=== PATIENT | male | born 1950 | race African-American/Black ===

== ENCOUNTER 2022-06-03 10:11 | Emergency (ER) | payer OTHER ==
[~2022-06-03] VITALS: Ht 175.3 cm; Wt 68.0 kg
[~2022-06-03 10:11] MED LIST: BENA5TAB; MOTRIN
[2022-06-03 10:25] VITALS: BP 182/77
[2022-06-03 15:33] LABS: CLARITY URINE CLEAR (CLEAR); COLOR URINE YELLOW (YELLOW); KETONES URINE TRACE (NEGATIVE); LEUKOCYTE ESTERASE URINE NEGATIVE (NEGATIVE); NITRITE URINE NEGATIVE (NEGATIVE); OCCULT BLOOD URINE NEGATIVE (NEGATIVE); PH URINE 5.5 (4.5-8.0); PROTEIN URINE 1+ (NEGATIVE); SPECIFIC GRAVITY URINE 1.023 (1.005-1.030); UROBILINOGEN URINE 0.2 E.U./dL (0.2-1.0)
[2022-06-03] MEDS ORDERED: ACET-2708 MT (16:36)
== END 2022-06-03 16:56 | disposition home or self-care (01) ==
LOC: ER 10:39
DX: R10.31 Right lower quadrant pain (principal); N50.811 Right testicular pain; I10 Essential (primary) hypertension
CPT/HCPCS: 76870; 81003; 93976; 99284